=== PATIENT | male | born 1980 | race Two or more races ===

== ENCOUNTER 2018-12-27 16:38 | Emergency (ER) | payer SELFPAY ==
[~2018-12-27] VITALS: Ht 175.3 cm; Wt 99.8 kg
[2018-12-27] MEDS ORDERED: HYDROmorphone HCL 2 MG/ML VL IV ONE (17:30)
[2018-12-27] MEDS ORDERED: ONDANSETRON HCL 4 MG/2 ML VIAL IV ONE (17:30)
[2018-12-27] MEDS ORDERED: cefTRIAXone 1GM/50ML D5W 50 ML IV ONE (17:30)
[2018-12-27] MEDS ORDERED: TETANUS-DIPTH-ACEL PERTUSSIS 0.5ML SYRG IM ONE (18:00)
[2018-12-27 21:04] VITALS: BP 147/97
== END 2018-12-27 21:29 | disposition short-term general hospital (02) ==
LOC: EDBD 16:38 → ER 16:38
DX: S82.832C Other fracture of upper and lower end of left fibula, initial encounter for open fracture type IIIA, IIIB, or IIIC (principal); S82.302C Unspecified fracture of lower end of left tibia, initial encounter for open fracture type IIIA, IIIB, or IIIC; W17.89XA Other fall from one level to another, initial encounter; Y93.89 Activity, other specified; Y92.89 Other specified places as the place of occurrence of the external cause; Y99.0 Civilian activity done for income or pay
CPT/HCPCS: 70450; 72125; 73600; 90471; 90715; 96365; 96375; 99285; J0696; J1170; J2405